=== PATIENT | female | born 1960 | race Caucasian/White ===

== ENCOUNTER → 2017-02-22 | Outpatient (CLI) | payer BC ==
--- NOTE | 2017-02-25 14:10 | MAM ---
EXAM DESCRIPTION: 3D Screening BILATERAL CLINICAL HISTORY: 56 years, Female, Screening mammogram COMPARISON: January 26, 2016 TECHNIQUE: CC and MLO digital mammograms with 3-D tomosynthesis. No CAD utilized. FINDINGS: There are scattered fibroglandular densities. There is no dominant mass nor any suspicious microcalcifications. Benign microcalcifications are present. IMPRESSION: BIRAD CATEGORY: 2 BENIGN FOLLOW-UP: Routine mammography screening. Electronically signed by: Bakari Lucio MD 02/25/2017 2:08 PM CDT
== END ==
LOC: MAMMO 09:40
PROVIDERS: ATTEND Nurse Practitioner Acute Care
DX: Z12.31 Encounter for screening mammogram for malignant neoplasm of breast (principal)
CPT/HCPCS: 77063; G0202

== ENCOUNTER → 2018-08-22 | Outpatient (CLI) | payer OTHER | LOC: GMAM 15:27 | PROVIDERS: ATTEND Family Medicine | DX: C22.1 Intrahepatic bile duct carcinoma (principal) ==

== ENCOUNTER → 2018-08-23 | Outpatient (CLI) | payer OTHER | LOC: SOLHO 13:24 | PROVIDERS: ATTEND Family Medicine | DX: C22.1 Intrahepatic bile duct carcinoma (principal) ==